=== PATIENT | male | born 1955 | race Caucasian/White ===

== ENCOUNTER 2022-12-01 19:13 | Emergency (ER) | payer MEDICARE, SELFPAY ==
[2022-12-01 19:20] VITALS: BP 175/102; PULSE 110; RESP 16; TEMP 36.2; O2SAT 97; BMI 25.7
--- NOTE | 2022-12-01 19:45 | XRR_ITS ---
PROCEDURE INFORMATION: Exam: XR Chest Exam date and time: 12/01/2022 8:04 PM Age: 67 years old Clinical indication: Cough and other: AMS TECHNIQUE: Imaging protocol: Radiologic exam of the chest. Views: 1 view. COMPARISON: No relevant prior studies available. FINDINGS: Lungs: Unremarkable. No consolidation. Pleural spaces: Unremarkable. No pleural effusion. No pneumothorax. Heart/Mediastinum: Unremarkable. No cardiomegaly. Bones/joints: Unremarkable. XR/XR chest 1V portable [id number] IMPRESSION: No acute findings.
--- NOTE | 2022-12-01 19:54 | W.ED.PSYCHS ---
HPI - Psych General: Chief Complaint: Psychiatric Symptoms Stated Complaint: 96 Time Seen by Provider: 12/01/22 19:37 History of Present Illness: 67-year-old male presents in police custody. They were evidently called to a domestic dispute. Law enforcement stated that the patient was intoxicated, and told them just get it over with and shoot me . The patient is tearful, and resentful. He states that he was upset, and that words were said to him, so he said these words back. He is in no way suicidal or homicidal. He notes that he lives at home with family, and that he would be safe at home going back with his family. He has a history of hypertension. No other medical problems. He answers all my questions appropriately. MD complaint: feels depressed and other Onset (ago): hour(s) Duration: changing over time and resolved prior to arrival History of same: No Relieving factors: none Exacerbating factors: alcohol Context: recent alcohol abuse Associated psychiatric symptoms: depression Associated symptoms: Deny auditory hallucinations, visual hallucinations, homicidal ideation or suicidal ideation Treatments prior to arrival: none Review of Systems Const: Denies: fever(s), chills or body aches Eyes: Denies: change in vision Card: Denies: chest pain or palpitations Resp: Denies: dyspnea, productive cough, non-productive cough or wheezing GI: Denies: abdominal pain, nausea, vomiting, diarrhea or hematochezia Skin/Breast: Denies: rash Neuro: Denies: headache(s), weakness in extremities, dizziness or confusion Psych: Denies: visual hallucinations, auditory hallucinations, suicidal ideation or homicidal ideation Physical Exam Const: COMMON NORMALS: no acute distress GENERAL APPEARANCE: cooperative; not ill appearing and not frail appearing HENMT: COMMON NORMALS: normocephalic, atraumatic and Normal external nose present HEAD & SCALP: normocephalic and atraumatic FACE & SINUS: normal facial exam and face symmetric NOSE: Normal external nose present Eye: COMMON NORMALS: Equal, round and reactive pupils present and EOMs intact bilaterally PUPIL: Yes Equal, round and reactive pupils present Neck/C-Spine: GENERAL: Yes trachea midline Chest: CHEST: Yes Symmetrical chest wall rise Resp: COMMON NORMALS: normal respiratory effort, No retractions, No use of accessory muscles and clear to auscultation bilaterally AUSCULTATION: clear to auscultation bilaterally Cardio: COMMON NORMALS: regular rate and regular rhythm RATE: regular rate RHYTHM: regular rhythm GI: COMMON NORMALS: Normal to inspection, nondistended, normoactive bowel sounds present Extremity: COMMON NORMALS: no pedal edema Neuro: SHARYN COMA SCALE: document GCS findings Sharyn coma scale eye opening: Spontaneous [place] coma scale verbal response: Orientated Sharyn coma scale motor response: Obey commands Sharyn coma scale total score: 15 SENSORY EXAM: Yes extremities (intact) Psych: COMMON NORMALS: speech normal SPEECH: Yes normal speech Skin: COMMON NORMALS: no rashes or lesions noted GENERAL SKIN EXAM: no rashes or lesions noted Course Vital Signs: Vital signs: Vital Signs Temperature 97.2 F L 12/01/22 19:20 Pulse Rate 110 H 12/01/22 19:20 Respiratory Rate 16 12/01/22 19:20 Blood Pressure 175/102 12/01/22 19:20 Pulse Oximetry 97 12/01/22 19:20 Oxygen Delivery Me thod Room Air 12/01/22 19:20 MDM - Psych Medical Decision Making This gentleman has been reasonable. He has been compliant. He is in paper scrubs on my examination. He is alert and oriented x3, knows his situation. He is in no way homicidal or suicidal. He is exhibiting no psychotic symptoms. He exhibits remorse for his actions. He will be allowed to wash his hands, eat something, and call his family. If there is a sober adult, that he feels safe with, willing to observe him, he will be discharged. He is medically quite stable. Lab Data 12/01/22 20:08 12/01/22 20:08 Radiology Impressions Chest X-Ray 12/01/22 19:45 IMPRESSION: No acute findings. Laboratory Results WBC 5.6 10^3/uL (4.0-10.0) 12/01/22 20:08 RBC 4.62 10^6/uL (4.1-5.3) 12/01/22 20:08 Hgb 14.7 g/dL (11.7-16.6) 12/01/22 20:08 Hct 43.5 % (42.0-52.0) 12/01/22 20:08 MCV 94.2 fl (80-94) H 12/01/22 20:08 MCH 31.8 pg (28.0-34.0) 12/01/22 20:08 MCHC 33.8 g/dL (30.0-36.0) 12/01/22 20:08 RDW 12.1 % (12.1-15.1) 12/01/22 20:08 Plt Count 234 10^3/cmm (130-400) 12/01/22 20:08 MPV 9.7 fL (7.4-10.4) 12/01/22 20:08 Neut % (Auto) 59.5 % 12/01/22 20:08 Lymph % (Auto) 29.7 % 12/01/22 20:08 [place] % (Auto) 9.3 % 12/01/22 20:08 Eos % (Auto) 0.9 % 12/01/22 20:08 Baso % (Auto) 0.4 % 12/01/22 20:08 Neut # (Auto) 3.33 10^3/uL (1.8-7.7) 12/01/22 20:08 Lymph # (Auto) 1.7 10^3/uL (0.8-4.8) 12/01/22 20:08 [place] # (Auto) 0.5 10^3/uL (0.2-0.9) 12/01/22 20:08 Eos # (Auto) 0.1 10^3/uL (0.0-0.8) 12/01/22 20:08 Baso # (Auto) 0.0 10^3/uL (0.0-0.1) 12/01/22 20:08 Nucleated RBC % (auto) 0 % 12/01/22 20:08 Nucleated RBCs # 0.0 /100WBC 12/01/22 20:08 Sodium 145 mmol/L (136-145) 12/01/22 20:08 Potassium 3.8 mmol/L (3.5-5.1) 12/01/22 20:08 Chloride 107 mmol/L (98-107) 12/01/22 20:08 Carbon Dioxide 23 mmol/L (22-29) 12/01/22 20:08 Anion Gap 18.8 (5-19) 12/01/22 20:08 BUN 8 mg/dL (8-23) 12/01/22 20:08 Creatinine 0.8 mg/dL (0.7-1.2) 12/01/22 20:08 GFR Calculation 96.4 mL/min (90-130) 12/01/22 20:08 Glucose 118 mg/dL (65-115) H 12/01/22 20:08 Calculated Osmolality 299 mOsm/kg (285-295) H 12/01/22 20:08 Calcium 8.8 mg/dL (8.5-10.5) 12/01/22 20:08 Total Bilirubin 0.6 mg/dL (0.15-1.2) 12/01/22 20:08 AST 28 U/L (0-40) 12/01/22 20:08 ALT 19 U/L (0-41) 12/01/22 20:08 Alkaline Phosphatase 69 U/L (40-130) 12/01/22 20:08 Total Protein 7.5 g/dL (6.6-8.7) 12/01/22 20:08 Albumin 4.7 g/dL (3.5-5.2) 12/01/22 20:08 Globulin 2.8 g/dL (1.3-4.6) 12/01/22 20:08 TSH 0.82 uIU/mL (0.27-4.20) 12/01/22 20:08 Salicylates < 0.3 mg/dL (3-10) L 12/01/22 20:08 Acetaminophen < 5.0 ug/mL (10-30) L 12/01/22 20:08 Ethyl Alcohol 204 mg/dL (0-10) H 12/01/22 20:08 Discharge Plan Discharge Patient Disposition: Home Clinical Impression: Alcohol intoxication Condition: Stable Discharge Orders: Discharge ED (Routine); Ordered 12/01/22 Ordered By: Brady Huitron Referrals: Nirmal Sibley [Primary Care Provider] - 1-3 days Patient Instructions: Alcohol Intoxication (ED), Opioid Safety, Pain Management Activity Restrictions/Additional Instructions: Avoid the use of alcohol. Return for any thoughts or wishes to harm your self or anyone else. You should be in the presence of a sober adult for the next 24 hours Print Language: Icelandic Coding Level of Care Code ED Knitter Helper for Paula Ba
--- NOTE | 2022-12-01 20:02 | ECG_ITS ---
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 Measurements Intervals [place] Rate: 96 P: 20 WV: 160 QRS: 48 QRSD: 135 T: 13 QT: 382 QTc: 484 Interpretive Statements SINUS RHYTHM RIGHT BUNDLE BRANCH BLOCK [120+ ms QRS DURATION, UPRIGHT V1, 40+ ms S IN I/aVL/V4/V5/V6] SEPTAL MYOCARDIAL INFARCTION , PROBABLY OLD [40+ ms Q WAVE IN V1/V2] No previous ECG available for comparison Electronically Signed On 12-02-2022 10:29:29 CDT by Mohan Cruz M.D. [email or web address]
[2022-12-01 20:25] LABS: Basophils % 0.4 %; Eosinophils # 0.1 10^3/uL (0.0-0.8); Eosinophils % 0.9 %; Hematocrit 43.5 % (42.0-52.0); Hemoglobin 14.7 g/dL (11.7-16.6); Lymphocytes # 1.7 10^3/uL (0.8-4.8); Lymphocytes % 29.7 %; Mean Corpuscular HGB Conc 33.8 g/dL (30.0-36.0); Mean Corpuscular Hemoglobin 31.8 pg (28.0-34.0); Mean Corpuscular Volume 94.2 fl (80-94); Mean Platelet Volume 9.7 fL (7.4-10.4); Monocytes # 0.5 10^3/uL (0.2-0.9); Monocytes % 9.3 %; Neutrophils # 3.33 10^3/uL (1.8-7.7); Neutrophils % 59.5 %; Nucleated Red Blood Cells % 0 %; Platelet Count 234 10^3/cmm (130-400); Red Blood Count 4.62 10^6/uL (4.1-5.3); Red Cell Distribution Width 12.1 % (12.1-15.1); White Blood Count 5.6 10^3/uL (4.0-10.0)
[2022-12-01 20:43] LABS: Alanine Aminotransferase 19 U/L (0-41); Albumin Level 4.7 g/dL (3.5-5.2); Alcohol Level 204 mg/dL (0-10); Alkaline Phosphatase 69 U/L (40-130); Anion Gap 18.8 (5-19); Aspartate Amino Transferase 28 U/L (0-40); Blood Urea Nitrogen 8 mg/dL (8-23); Calcium 8.8 mg/dL (8.5-10.5); Carbon Dioxide 23 mmol/L (22-29); Chloride 107 mmol/L (98-107); Creatinine Clr Calc Pharmacy 108.4952; Globulin 2.8 g/dL (1.3-4.6); Glomerular Filtration Rate 96.4 mL/min (90-130); Glucose 118 mg/dL (65-115); Osmolality Calculated 299 mOsm/kg (285-295); Potassium 3.8 mmol/L (3.5-5.1); Sodium 145 mmol/L (136-145); Total Bilirubin 0.6 mg/dL (0.15-1.2); Total Protein 7.5 g/dL (6.6-8.7)
[2022-12-01 20:57] LABS: Acetaminophen < 5.0 ug/mL (10-30); Salicylate < 0.3 mg/dL (3-10)
[2022-12-01 21:16] LABS: Thyroid Stimulating Hormone 0.82 uIU/mL (0.27-4.20)
--- NOTE | 2022-12-01 22:47 | PC.NURSE ---
Pt refused vitals right before discharge. Pt also threw away discharge instructions.
== END 2022-12-01 22:49 | disposition home or self-care (01) ==
PROVIDERS: Emergency Provider Emergency Medicine; PCP Family Medicine
DX: F10.129 Alcohol abuse with intoxication, unspecified (principal); Y90.7 Blood alcohol level of 200-239 mg/100 ml
CPT/HCPCS: 36415; 71045; 80053; 80307; 84443; 85025; 93005; 99285